=== PATIENT | male | born 1960 | race Caucasian/White ===

== ENCOUNTER 2020-05-01 09:50 | Outpatient (CLI) | payer BC, SELFPAY ==
[2020-05-01 10:07] VITALS: BP 160/92; PULSE 78; RESP 20; TEMP 36.9; O2SAT 97; BMI 36.1
--- NOTE | 2020-05-01 10:33 | ECG_ITS ---
Measurements Intervals [place] Rate: 77 P: 50 CA: 201 QRS: -14 QRSD: 93 T: 50 QT: 355 QTc: 402 Interpretive Statements SINUS RHYTHM DELAYED PRECORDIAL R/S TRANSITION BASELINE ARTIFACT- I, II, AVR, AVL BORDERLINE ECG Electronically Signed On 05-01-2020 10:41:59 LITIGATION SPECIALIST by Milton George D.O.
[2020-05-01 10:55] LABS: Basophils Percent Auto 0.5 % (0.2-1.2); Eosinophils Absolute Auto 0.1 K/mm3 (0-0.3); Eosinophils Percent Auto 1.4 % (0-4.4); Hematocrit 50.1 % (42.0-52.0); Immature Granulocyte Absolute 0.02 K/mm3 (0.00-0.031); Immature Granulocyte Percent A 0.3 % (0-0.5); Lymphocytes Absolute Auto 1.28 K/mm3 (0.9-3.2); Mean Corpuscular HGB Conc 33.9 g/dl (32-36); Mean Corpuscular Hemoglobin 29.2 pg (26-34); Mean Corpuscular Volume 85.9 fl (80-100); Mean Platelet Volume 9.1 fl (7.4-10.4); Monocytes Absolute Auto 0.5 K/mm3 (0.1-0.6); Neutrophils Absolute Auto 4.5 K/mm3 (1.3-6.7); Neutrophils Percent Auto 70.8 % (45.5-73.1); Platelet Count Result 194 k/mm3 (150-375); Red Blood Count 5.83 M/mm3 (4.6-6.20); Red Cell Distribution Width 12.8 % (11.5-14.5); White Blood Count 6.4 K/mm3 (4.5-10.0)
[2020-05-01 11:04] LABS: INR 0.9; Prothrombin Time 12.9 Seconds (11.1-14.7)
[2020-05-01 11:05] LABS: Partial Thromboplastin Time 26.3 SECONDS (22.3-36.8)
[2020-05-01 11:06] LABS: Alanine Aminotransferase 32 U/L (4-50); Albumin Level 4.3 g/dL (3.5-5.1); Alkaline Phosphatase 61 U/L (38-126); Anion Gap 3 mmol/L (8-16); Aspartate Amino Transferase 25 U/L (17-59); Bilirubin,Total 0.7 mg/dL (0.2-1.3); Blood Urea Nitrogen 16 mg/dL (9-20); Calcium 9.8 mg/dL (8.4-10.2); Carbon Dioxide 31 mmol/L (22-30); Chloride 105 mmol/L (98-107); Estimated CRCL calculation 107 ml/min; Estimated Glomerular Filt Rate > 60; Glucose 174 mg/dL (75-110); Potassium 4.5 mmol/L (3.4-5.0); Sodium 139 mmol/L (137-145)
== END 2020-05-01 09:51 | disposition home or self-care (01) ==
LOC: ANHSURGERY 09:53
PROVIDERS: PCP Family Medicine; Visit Provider Urology
DX: C61 Malignant neoplasm of prostate (principal); I10 Essential (primary) hypertension; Z01.818 Encounter for other preprocedural examination; R94.31 Abnormal electrocardiogram [ECG] [EKG]
CPT/HCPCS: 36415; 80053; 85025; 85610; 85730; 86850; 86900; 86901; 87086; 93005

== ENCOUNTER 2020-05-06 00:09 | Outpatient (CLI) | payer BC, SELFPAY ==
[2020-05-07 00:20] LABS: SARS-CoV-2 RNA PCR Negative
== END 2020-05-06 00:10 | disposition home or self-care (01) ==
LOC: ANHCOVIDDT 00:10
PROVIDERS: PCP Family Medicine; Visit Provider Urology
DX: Z01.812 Encounter for preprocedural laboratory examination (principal); Z20.822 Contact with and (suspected) exposure to COVID-19
CPT/HCPCS: C9803; U0003; U0005

== ENCOUNTER 2020-05-09 00:58 | Day surgery (SDC) | payer BC, SELFPAY ==
[2020-05-01 10:07] VITALS: BP 160/90; PULSE 78; RESP 20; TEMP 36.9; O2SAT 97
[2020-05-09] VITALS (15 sets, daily range): BP systolic 99–150; BP diastolic 57–91; PULSE 82–101; RESP 12–20; TEMP 36.1–37.3; O2SAT 92–100
--- NOTE | 2020-05-09 07:09 | PM.IMHP ---
H&P: HPI History of Present Illness Date/Time: 05/09/20 07:09 Chief Complaint: Adenocarcinoma of prostate Narrative: Rufino Farnsworth is a 59 year old male found to have adenocarcinoma of prostate. He has opted for robotic assist nerve sparing prostatectomy with possible PLND. Risks and complications were discussed in office. Review of Systems Review of Systems: All systems reviewed & are unremarkable except as noted in HPI and below PMFSH Past Medical History Medical History Diabetes Hyperlipidemia Hypertension Prostate cancer Family History Family History Mother Family history of thyroid disease Family history of dementia Father Patient's father is Family history of malignant neoplasm Other Hypertension Social History Social History Smoking status: Never smoker Second hand tobacco smoke exposure: No Alcohol intake: never Substance use: never Substance use type: does not use Living arrangements: with family Spiritual care concerns: No Meds Home Medications and Allergies Home Medications Medication Instructions Recorded Confirmed Type amlodipine 10 mg DAILY 04/27/19 05/02/20 History aspirin 81 mg DAILY 04/27/19 05/02/20 History atenolol 25 mg DAILY 04/27/19 05/02/20 History empagliflozin-metformin [Synjardy] 1 tablet BID 04/27/19 05/02/20 History glimepiride 4 mg PO DAILY 04/27/19 05/02/20 History irbesartan 300 mg DAILY 04/27/19 05/02/20 History rosuvastatin 10 mg PO DAILY 04/27/19 05/02/20 History sitagliptin [Januvia] 100 mg PO DAILY 04/27/19 05/02/20 History cvmuuhyx-tqq-gthwx-vit K-lycop 1 tablet PO DAILY 05/01/20 05/02/20 History [Men 50 Plus Advanced One Daily] omega 0-ocm-jen-fish oil [Fish Oil] 1 cap QAM 05/01/20 05/02/20 History Allergies Allergy/AdvReac Type Severity Reaction Status Date / Time No Known Allergies Allergy Unverified 05/02/20 11:29 Exam Const: General: cooperative, healthy appearing, comfortable and no acute distress HENMT: Head: normal to inspection Eyes: General: appearance normal, both eyes and all related structures Chest: Chest palpation & inspection: normal inspection of the chest Resp: Effort & Inspection: normal respiratory effort Cardio: Rate: regular rate GI: Inspection: normal to inspection Back/Spine/Pelvis: Back: no CVA tenderness Skin: General skin exam: normal color Neuro: General: patient oriented x3 Psych: Appearance: grossly normal Assessment and Plan Assessment and plan (1) Prostate cancer: Code(s): C61 - Malignant neoplasm of prostate Status: Acute Assessment and Plan: Robotic assist nerve sparing prostatectomy with possible PLND
--- NOTE | 2020-05-09 07:11 | WPDANESEPPF ---
Anes - Initial Pre Proc Eval Procedure: Operation Date: 05/09/20 07:30 Proposed Procedures p Robotic Assisted Nerve Sparing Prostatectomy, Possible Pelvic Lymph Node Dissection - Jhony King MD Date/Time: 05/09/20 07:11 Surgeon: Jhony King MD Pre Op Diagnosis: Prostate Ca Patient Data Age: 59 Gender: M Height: 6 ft 2 in Weight: 127.6 kg Last Vital Signs Temp 98.5 F 05/01/20 10:07 Pulse 78 05/01/20 10:07 Resp 20 05/01/20 10:07 BP 160/90 H 05/01/20 10:07 Pulse Ox 97 05/01/20 10:07 Allergies Allergy/AdvReac Type Severity Reaction Status Date / Time No Known Allergies Allergy Unverified 05/02/20 11:29 Home Medications Medication Instructions Recorded Confirmed Type amlodipine 10 mg DAILY 04/27/19 05/02/20 History aspirin 81 mg DAILY 04/27/19 05/02/20 History atenolol 25 mg DAILY 04/27/19 05/02/20 History empagliflozin-metformin [Synjardy] 1 tablet BID 04/27/19 05/02/20 History glimepiride 4 mg PO DAILY 04/27/19 05/02/20 History irbesartan 300 mg DAILY 04/27/19 05/02/20 History rosuvastatin 10 mg PO DAILY 04/27/19 05/02/20 History sitagliptin [Januvia] 100 mg PO DAILY 04/27/19 05/02/20 History orfaeljt-sgd-waeyl-vit K-lycop 1 tablet PO DAILY 05/01/20 05/02/20 History [Men 50 Plus Advanced One Daily] omega 1-zmd-adp-fish oil [Fish Oil] 1 cap QAM 05/01/20 05/02/20 History Patient hx anesthesia problems: none Family hx anesthesia problems: none PMFSH Past Medical History Medical History Diabetes Hyperlipidemia Hypertension Prostate cancer Family History Family History Mother Family history of thyroid disease Family history of dementia Father Patient's father is Family history of malignant neoplasm Other Hypertension Social History Social History Smoking status: Never smoker Second hand tobacco smoke exposure: No Alcohol intake: never Substance use: never Substance use type: does not use Living arrangements: with family Spiritual care concerns: No Anes - Eval Final PreProcedure Day of Procedure 05/09/20 07:11 Patient weight: obese Heart: regular rate and rhythm Lungs: clear to auscultation Airway: Mallampati scale class II Neurological: alert and oriented Last oral intake: >/= 8 hours ASA classification: III Emergent: no Anesthetic plan: proceed Anesthesia type and monitoring: general ETT and standard monitoring Informed Consent: The patient's anesthetic plan and its attendant risks and benefits were discussed with the patient/family/POA. Questions were solicited and answers provided to the satisfaction of the patient/family/POA.
[2020-05-09] MEDS: LACTATED RINGERS 1,000 ML 30 ML IV CONT ×2 (07:12→13:02)
--- NOTE | 2020-05-09 07:13 | WPDHPUPDATE1 ---
History and Physical Update Update Date/Time: 05/09/20 07:13 History and Physical has been reviewed, including an updated exam of the patient. There are NO changes in the patient's condition. Risks, benefits, and alternatives have been discussed and questions answered. Patient agrees to proceed with procedure.
[2020-05-09 07:14] LABS: Glucose Point of Care 167 (65-105)
[2020-05-09] MEDS: ceFAZolin 3 GM/D5W 100 ML 100 ML IVPB (07:26)
[2020-05-09] MEDS: BUPIVACAINE HCL 0.5% PF 30 ML VIAL INFILTRATE (09:03)
--- NOTE | 2020-05-09 12:46 | PM.PROC ---
Procedure Note - Detailed Date of procedure: 05/09/20 Pre-op diagnosis: Prostate Ca Post-op diagnosis: same Procedure performed: Robotic assisted nerve-sparing prostatectomy Description of procedure: The patient is taken the operative suite and correctly identified. Once anesthesia was obtained he was placed in dorsal lithotomy position and prepped and draped usual sterile fashion. This supraumbilical incision was made carried down to the rectus fascia. We did an open technique and placed a camera trocar in direct vision. The abdomen was insufflated to 15 mm Hg pressure. We then went ahead and placed our remaining working ports. The robot was docked after the patient was placed in steep Trendelenburg. A Trimble catheter had been inserted earlier with 20 cc in the balloon. Posterior approach was then performed. Seminal vesicles were dissected out and the vas were transected. Bladder was then taken down in a standard fashion. The space of Retzius was developed. The [place] status were transected. The dorsal venous complex was isolated using 0 Vicryl secured to the pubic bone. Anterior bladder neck was then opened. Posterior bladder neck was also transected. We did a bladder neck sparing procedure. CC prior to not be Zaiz that had been incised was then exposed seminal vesicles and vas were isolated. Bilateral nerve-sparing was performed the standard fashion. Pedicles were clipped. Dorsal venous complex was then transected. Urethra was also transected. Specimen was placed in Endo-Catch bag. We then proceeded with anastomosis of the bladder neck to the urethra using V lock suture in a running fashion. There was good mucosa to mucosa approximation. Trimble catheter was inserted inflated with 10 cc sterile water. We filled the bladder with 160 cc of normal saline. There was no evidence of extravasation at this time. Surgicel had been placed along the neurovascular bundle. The robot was undocked. All left flap counts sponge counts and needle counts were correct. Endo-Catch bag was then brought out through the midline incision. Rectus fascia was closed using 0 Vicryl in a running fashion. Subcuticular stitches were then placed as was lidocaine in the skin. Patient tolerated procedure well without any complications is taken recovery room stable condition. Anesthesia: GETA Surgeon: Jhony King MD Estimated blood loss (mL): 500 Drains: Yes Packing: No Pathology: yes Complications: No immediate complications Condition: stable Disposition: PACU
[2020-05-09 13:27] LABS: Glucose Point of Care 200 (65-105)
[2020-05-09] MEDS: fentaNYL CITRATE INJ (*CRX) 100 MCG/2 ML VIAL 25 MCG IV PUSH ×4 (13:40→14:05)
--- NOTE | 2020-05-09 14:44 | ADMGEN ---
This patient, Rufino Farnsworth, was admitted to Medical Room 250-. Patient/family oriented to hospital policies and general routines including ID bracelet, bed and alarms, visiting hours, pain management, procedures, bathroom and other care routines, personal items, smoking policy, room service/diet, and visiting hours. Information on how to activate the Rapid Response Team has been discussed. Patient/Family are encouraged to report perceived risks to care and to ask questions if they do not understand what they are told or what they should do.
[2020-05-09] MEDS: LACTATED RINGERS 1,000 ML 125 ML IV CONT (14:58)
--- NOTE | 2020-05-09 15:25 | PHAR ---
HOME MED VERIFIED SYNJARDY EMPAGLIFLOZIN/METFORMIN 12.5/1000MG 1 TABLET BID WITH MEALS
[2020-05-09 17:00] LABS: Glucose Point of Care 259 (65-105)
[2020-05-09] MEDS: HYDROcodone/acetaminophen (*CRX) 5-325 MG TABLET 1 TAB PO (17:01)
[2020-05-09] MEDS: INSULIN ASPART (*BKC) 100 UNITS/ML SUB-Q (17:05)
[2020-05-09 20:55] LABS: Glucose Point of Care 192 (65-105)
[2020-05-10] MEDS: LACTATED RINGERS 1,000 ML 125 ML IV CONT (00:05)
[2020-05-10] MEDS: HYDROcodone/acetaminophen (*CRX) 5-325 MG TABLET 2 TAB PO ×3 (00:05→13:13)
[2020-05-10 02:00] VITALS: BP 120/84; PULSE 105; RESP 16; TEMP 37.2; O2SAT 95
[2020-05-10 05:28] VITALS: BP 163/88; PULSE 93; RESP 16; TEMP 37.1; O2SAT 95
[2020-05-10 05:45] LABS: Hematocrit 39.4 % (42.0-52.0); Hemoglobin 13.3 g/dL (14.0-18.0)
[2020-05-10 05:59] LABS: Anion Gap 6 mmol/L (8-16); Blood Urea Nitrogen 17 mg/dL (9-20); Calcium 8.3 mg/dL (8.4-10.2); Carbon Dioxide 26 mmol/L (22-30); Chloride 103 mmol/L (98-107); Estimated CRCL calculation 106 ml/min; Estimated Glomerular Filt Rate > 60; Glucose 171 mg/dL (75-110); Potassium 3.7 mmol/L (3.4-5.0); Sodium 135 mmol/L (137-145)
--- NOTE | 2020-05-10 07:21 | WPDANESPN ---
Anes - Prog Note Post-Op Date/Time: 05/10/20 07:21 Cardiovascular status: normal Respiratory status: normal Airway patency: baseline Mental status: baseline Post-Op hydration status: normal Vital Signs: Last Vital Signs Temp 98.7 F 05/10/20 05:28 Pulse 93 05/10/20 05:28 Resp 16 05/10/20 05:28 BP 163/88 H 05/10/20 05:28 Pulse Ox 95 05/10/20 05:28 Pain Score (VAS): 04/23 I/O: Intake & Output 05/09/20 05/09/20 05/10/20 15:59 23:59 07:59 Intake Total 200 3980 550 Output Total 205 855 880 Balance -5 3125 -330 Laboratory Tests 05/10/20 05:04 05/09/20 05/09/20 05/09/20 13:10 16:55 20:52 Hgb Hct Sodium Potassium Chloride Carbon Dioxide Anion Gap BUN Creatinine Estim Creat Clear Calc Estimated GFR Glucose POC Capillary Glucose 200 H 259 H 192 H Calcium 05/10/20 05/10/20 05:04 05:04 Hgb Pending Hct Pending Sodium 135 L Potassium 3.7 Chloride 103 Carbon Dioxide 26 Anion Gap 6 L BUN 17 Creatinine 0.90 Estim Creat Clear Calc 106 Estimated GFR > 60 Glucose 171 H POC Capillary Glucose Calcium 8.3 L Post-procedural complaints: none Patient Feedback: Patient satisfied with anesthetic care.
--- NOTE | 2020-05-10 07:57 | WPDUROPN2 ---
Progress Note: A&P Assessment and Plan (1) Adenocarcinoma of prostate: Code(s): C61 - Malignant neoplasm of prostate Status: Acute Additional Plan POD #1 robotic assist nerve sparing prostatectomy Doing well Ambulate Await H/H Most likely discharge home after lunch with stone. Will see what VIDYA output is. Subjective Subjective Date/Time Seen: 05/10/20 07:57 Feels great this morning. Ambulated last night Review of Systems Review of Systems: All systems reviewed & are unremarkable except as noted in HPI and below Exam Const: General: cooperative, comfortable and no acute distress Chest: Chest palpation & inspection: normal inspection of the chest Cardio: Rate: regular rate GI: GI Palp: Yes Soft to palpation and No Tenderness to palpation present (GI) Urinary Catheter: Urinary Catheter: patent and draining and urine clear Objective Data Vital Signs Vital Signs: Vital Signs - 24 hr 05/09/20 13:10 05/09/20 13:25 05/09/20 13:40 Temperature 36.2 C L Pulse Rate 86 84 82 Respiratory Rate 14 16 14 Blood Pressure 116/79 108/71 105/73 Pulse Oximetry 98 100 100 05/09/20 13:55 05/09/20 14:10 05/09/20 14:25 Temperature 36.2 C L Pulse Rate 89 88 87 Respiratory Rate 12 12 14 Blood Pressure 107/69 103/75 99/71 L Pulse Oximetry 92 94 94 05/09/20 15:00 05/09/20 15:15 05/09/20 15:45 Temperature 36.4 C 36.2 C L 36.1 C L Pulse Rate 94 91 87 Respiratory Rate 16 16 16 Blood Pressure 119/80 127/82 135/87 Pulse Oximetry 93 99 96 05/09/20 16:45 05/09/20 17:03 05/09/20 18:00 Temperature 36.2 C L 36.9 C Pulse Rate 95 90 97 Respiratory Rate 20 18 Blood Pressure 101/77 127/69 115/57 L Pulse Oximetry 96 95 05/09/20 20:00 05/09/20 21:30 05/10/20 02:00 Temperature 37.3 C 37.2 C Pulse Rate 101 H 101 H 105 H Respiratory Rate 14 14 16 Blood Pressure 124/67 120/84 Pulse Oximetry 93 93 95 05/10/20 05:28 Temperature 37.1 C Pulse Rate 93 Respiratory Rate 16 Blood Pressure 163/88 H Pulse Oximetry 95 Intake/Output Intake/Output: Intake & Output 05/07/20 05/08/20 05/09/20 05/10/20 23:59 23:59 23:59 23:59 Intake Total 4280 550 Output Total 1060 880 Balance 3220 -330 Meds/Results Medications: Active Medications Generic Name Dose Route Start Last Admin Trade Name Freq PRN Reason Stop Dose Admin Hydrocodone Bitart/Acetaminophen 1 tab 05/09/20 14:30 05/09/20 17:01 Hydrocodone/Acetaminophen (*Crx) 5-325 Mg Tablet PO 1 tab Q6H PRN Administration Pain Rated 1-3 Hydrocodone Bitart/Acetaminophen 2 tab 05/09/20 14:30 05/10/20 06:56 Hydrocodone/Acetaminophen (*Crx) 5-325 Mg Tablet PO 2 tab Q6H PRN Administration Pain Rated 4-6 Amlodipine Besylate 10 mg 05/10/20 09:00 Amlodipine Besylate 5 Mg Tablet PO DAILY JUICE Atenolol 25 mg 05/10/20 09:00 Atenolol 25 Mg Tablet PO DAILY JUICE Dextrose 12.5 gm 05/09/20 15:16 Dextrose 50% 25 Gm/50 Ml Syringe IV PUSH PRN PRN Hypoglycemia Protocol Glimepiride 4 mg 05/10/20 09:00 Glimepiride 2 Mg Tablet PO 06/09/20 09:01 DAILY JUICE Glucagon 1 mg 05/09/20 15:16 Glucagon For Inj 1 Mg Vial IM PRN PRN Hypoglycemia Protocol Glucose 15 gm 05/09/20 15:16 Glucose Oral Gel 15 Gm Of Glucse In 37.5 Gm Tube PO PRN PRN Hypoglycemia Protocol Hyoscyamine 0.125 mg 05/09/20 14:30 Hyoscyamine Sulfate 0.125 Mg Tablet SUBLINGUAL Q4H PRN Bladder Spasm Lactated Ringer's 1,000 mls @ 125 mls/hr 05/09/20 14:30 05/10/20 00:05 Lr - Lactated Ringers Iv IV CONT 125 mls/hr .Q8H JUICE Administration Dextrose 1,000 mls @ 100 mls/hr 05/09/20 15:16 Dextrose 5% 1,000 Ml IVPB PRN PRN Hypoglycemia Protocol Insulin Aspart 2 - 5 units 05/09/20 17:00 05/09/20 17:05 Insulin Aspart (*Bkc) 100 Units/Ml SUB-Q 3 units TIDWM JUICE Administration Protocol Irbesartan 300 mg
[2020-05-10] MEDS: IRBESARTAN 150 MG TABLET 300 MG PO (08:04)
[2020-05-10 08:05] VITALS: PULSE 78
[2020-05-10] MEDS: ROSUVASTATIN 10 MG TABLET PO (08:05)
[2020-05-10] MEDS: GLIMEPIRIDE 2 MG TABLET 4 MG PO (08:05)
[2020-05-10] MEDS: amLODIPine BESYLATE 5 MG TABLET 10 MG PO (08:05)
[2020-05-10] MEDS: atenoloL 25 MG TABLET PO (08:05)
[2020-05-10 08:30] VITALS: BP 166/92; PULSE 104; RESP 20; TEMP 36.4; O2SAT 98
[2020-05-10 11:04] LABS: Glucose Point of Care 221 (65-105)
[2020-05-10] MEDS: INSULIN ASPART (*BKC) 100 UNITS/ML SUB-Q (11:51)
[2020-05-10 12:15] VITALS: BP 140/78; PULSE 102; RESP 18; TEMP 36.1; O2SAT 99
--- NOTE | 2020-05-10 13:37 | PM.DS ---
DS: Admitting Diagnosis Admitting Diagnosis Admitting Diagnosis: Prostate Cancer DS: Discharge Diagnosis Discharge Diagnosis (1) Prostate cancer: Code(s): C61 - Malignant neoplasm of prostate Status: Acute DS: Summary Hospital Course Hospital Course: Patient is s/p Robotic Prostatectomy. DS: Data Data Completed and Pending Pending studies at discharge: Pending at discharge 05/09/20 11:47 Surgical [PTH] Routine Labs on day of discharge: Labs from last 24 hours 05/10/20 05/10/20 05/10/20 11:02 05:04 05:04 Hgb 13.3 L D Hct 39.4 L Sodium 135 L Potassium 3.7 Chloride 103 Carbon Dioxide 26 Anion Gap 6 L BUN 17 Creatinine 0.90 Estim Creat Clear Calc 106 Estimated GFR > 60 Glucose 171 H POC Capillary Glucose 221 H Calcium 8.3 L 05/09/20 05/09/20 20:52 16:55 Hgb Hct Sodium Potassium Chloride Carbon Dioxide Anion Gap BUN Creatinine Estim Creat Clear Calc Estimated GFR Glucose POC Capillary Glucose 192 H 259 H Calcium Discharge Plan Discharge Patient Disposition: Home, Self-Care Discharge Instructions: Follow up in the office on May 12 at 10:30 am with Claudia Villagran NP to remove VIDYA drain. You will then follow up on FridayMay 17 at 2pm following cystogram with Dr. King to have stone removed and to discuss pathology results and any further treatment plan if necessary. Please call the office or go to the ER for a fever of >102, drainage from your incision sites, edema, sudden acute abdominal pain, bloody urine or clots in the urine. Patient Instructions: Pain Management (DC), Stone Catheter Placement and Care (DC), Bora-Card Drain Care (GEN), Fall Prevention (DC), Urinary Leg Bag (GEN), How to Change a Catheter Drainage Bag (DC) Stand Alone Forms: Avoid NSAIDs, Fiber Supplement, High Fiber Diet Follow-up/Referrals: Jhony King MD [Physician] - Discharge Medications: New hyoscyamine sulfate [Anaspaz] 0.125 mg Tablet,Disintegrating 0.125 mg sublingual Q4H PRN (Reason: Bladder Spasm) 5 Days Qty: 30 RF: 0 levofloxacin 500 mg Tablet 500 mg PO DAILY 4 Days Qty: 4 RF: 0 hydrocodone-acetaminophen 5-325 mg tablet 1 tablet PO Q6H PRN (Reason: pain) Qty: 20 RF: 0 Continued atenolol 25 mg tablet 25 mg DAILY RF: 0 irbesartan 300 mg tablet 300 mg DAILY RF: 0 amlodipine 10 mg Tablet 10 mg DAILY RF: 0 glimepiride 4 mg Tablet 4 mg PO DAILY RF: 0 rosuvastatin 10 mg Tablet 10 mg PO DAILY RF: 0 Januvia 100 mg Tablet 100 mg PO DAILY RF: 0 Synjardy 12.5-1,000 mg Tablet 1 tablet BID RF: 0 Held aspirin 81 mg tablet,delayed release (DR/EC) 81 mg DAILY RF: 0 Hold Instructions: Resume on 05/17/20. omega 5-bjb-fjs-fish oil [Fish Oil] 1,200 (144-216) mg Capsule 1 cap QAM RF: 0 Hold Instructions: Resume on 05/17/20. Men 50 Plus Advanced One Daily 400-20-370 mcg Tablet 1 tablet PO DAILY RF: 0 Hold Instructions: Resume on 05/17/20.
--- NOTE | 2020-05-10 13:38 | PM.DS ---
DS: Admitting Diagnosis Admitting Diagnosis Admitting Diagnosis: Prostate Cancer DS: Summary Hospital Course Hospital Course: See note below Time Spent with Patient Time attestation: Pre Op Diagnosis: Prostate Cancer Post Operative Diagnosis: Prostate Cancer Patient underwent a Robotic assisted nerve-sparing prostatectomy with Dr. Sabina King on 05/09/2020. He tolerated the procedure well and went to recovery in stable condition and to the floor for further observation overnight. He continues to improve, is ambulatory, in little pain, tolerating diet and wants to go home. He will be discharged home with a VIDYA drain and Stone to be removed later this week (drain) and next (stone). He will resume all home medications except ASA and vitamins which will be held until stone is removed on 05/17/2020. He will also go home with Hydrocodone for pain, Levaquin to prevent SSI, and Levsin for bladder spasms. He will resume a diabetic diet, activity as tolerated, no straining or heavy lifting and no driving on pain medications. Exam Resp: Effort & Inspection: normal respiratory effort Cardio: Rate: tachycardic GI: GI Palp: Yes Soft to palpation and No Tenderness to palpation present (GI) (Incisions are well approximated, no drainage, redness or edema) Rectal Exam: other Other: VIDYA drain has >75cc of bloody drainage. : General: Yes no CVA tenderness Urinary Catheter: Urinary Catheter: patent and draining and urine clear Extrem: General: no edema DS: Data Data Completed and Pending Pending studies at discharge: Pending at discharge 05/09/20 11:47 Surgical [PTH] Routine Labs on day of discharge: Labs from last 24 hours 05/10/20 05/10/20 05/10/20 11:02 05:04 05:04 Hgb 13.3 L D Hct 39.4 L Sodium 135 L Potassium 3.7 Chloride 103 Carbon Dioxide 26 Anion Gap 6 L BUN 17 Creatinine 0.90 Estim Creat Clear Calc 106 Estimated GFR > 60 Glucose 171 H POC Capillary Glucose 221 H Calcium 8.3 L 05/09/20 05/09/20 20:52 16:55 Hgb Hct Sodium Potassium Chloride Carbon Dioxide Anion Gap BUN Creatinine Estim Creat Clear Calc Estimated GFR Glucose POC Capillary Glucose 192 H 259 H Calcium Discharge Plan Discharge Patient Disposition: Home, Self-Care Discharge Instructions: Follow up in the office on May 12 at 10:30 am with Claudia Villagran BROMINATION EQUIPMENT OPERATOR to remove VIDYA drain. You will then follow up on FridayMay 17 at 2pm following cystogram with Dr. King to have stone removed and to discuss pathology results and any further treatment plan if necessary. Please call the office or go to the ER for a fever of >102, drainage from your incision sites, edema, sudden acute abdominal pain, bloody urine or clots in the urine. Patient Instructions: Pain Management (DC), Stone Catheter Placement and Care (DC), Bora-Card Drain Care (GEN), Fall Prevention (DC), Urinary Leg Bag (GEN), How to Change a Catheter Drainage Bag (DC) Stand Alone Forms: Avoid NSAIDs, Fiber Supplement, High Fiber Diet Follow-up/Referrals: Jhony King MD [Physician] - Discharge Medications: New hyoscyamine sulfate [Anaspaz] 0.125 mg Tablet,Disintegrating 0.125 mg sublingual Q4H PRN (Reason: Bladder Spasm) 5 Days Qty: 30 RF: 0 levofloxacin 500 mg Tablet 500 mg PO DAILY 4 Days Qty: 4 RF: 0 hydrocodone-acetaminophen 5-325 mg tablet 1 tablet PO Q6H PRN (Reason: pain) Qty: 20 RF: 0 Continued atenolol 25 mg tablet 25 mg DAILY RF: 0 irbesartan 300 mg tablet 300 mg DAILY RF: 0 amlodipine 10 mg Tablet 10 mg DAILY RF: 0 glimepiride 4 mg Tablet 4 mg PO DAILY RF: 0 rosuvastatin 10 mg Tablet 10 mg PO DAILY RF: 0 Januvia 100 mg Tablet 100 mg PO DAILY RF: 0 Synjardy 12.5-1,000 mg Tablet 1 tablet BID RF: 0 Held aspirin 81 mg tablet,delayed release (DR/EC) 81 mg DAILY RF: 0
== END 2020-05-10 14:20 | disposition home or self-care (01) ==
LOC: ANHSURGERY 06:07 → ANH2MED 14:40
PROVIDERS: PCP Family Medicine; Visit Provider Urology
PROC: 0VT04ZZ Resection of Prostate, Percutaneous Endoscopic Approach (ICD-10-PCS; CPT 55867; principal; 2020-05-09 07:30)
DX: C61 Malignant neoplasm of prostate (principal); I10 Essential (primary) hypertension; E78.5 Hyperlipidemia, unspecified; E11.9 Type 2 diabetes mellitus without complications; E66.9 Obesity, unspecified; Z68.35 Body mass index [BMI] 35.0-35.9, adult; Z79.82 Long term (current) use of aspirin; Z79.84 Long term (current) use of oral hypoglycemic drugs
CPT/HCPCS: 55866; S2900; 36415; 80048; 85014; 85018; 88305; 88307; 88309; A9270; J0690; J1100; J1170; J1815; J2250; J2370; J2405; J2704; J2710; J3010; J7030; J7120; Q9968

== ENCOUNTER 2020-05-17 12:29 | Outpatient (CLI) | payer BC, SELFPAY ==
--- NOTE | ~2020-05-17 | XR_ITS ---
EXAMINATION: XR cystogram DATE: 05/17/2020 13:08 INDICATION: Prostate cancer status post prostatectomy. TECHNIQUE: Water-soluble contrast was gravity-infused through the patient's Trimble catheter. Multiple fluoroscopic images were obtained. Fluoroscopy exposure time was 0.3 minutes. The total number of luz maria ges was 8. COMPARISON: None. FINDINGS: There is no extraluminal leakage of contrast from the bladder or urethra. No ureteral reflu x. IMPRESSION: 1. Normal cystogram. Reviewed, dictated and finalized at location A. IMPRESSION: 1. Normal cystogram.
== END 2020-05-17 12:30 | disposition home or self-care (01) ==
PROVIDERS: PCP Family Medicine; Visit Provider Urology
DX: C61 Malignant neoplasm of prostate (principal)
CPT/HCPCS: 51600; 74430; Q9967

== ENCOUNTER → 2022-01-09 07:51 | Outpatient (CLI) | payer BC, SELFPAY ==
--- NOTE | ~2022-01-09 | US_ITS ---
US right upper quadrant INDICATION: Abdomen pain. PROCEDURE: Realtime right upper abdominal ultrasound. COMPARISON: No prior studies for comparison. FINDINGS: The pancreas is normal without focal mass or pancreatic ductal dilation. Liver echotexture is increased, consistent with fatty infiltration. There is normal directional flow in the portal ve in. The gallbladder is normal without stones, gallbladder wall thickening or pericholecystic fluid. Comm on bile duct measures 5 mm. No sonographic Ashton's sign. IMPRESSION: 1: Hepatic steatosis. Reviewed, dictated and finalized at location B. IMPRESSION: 1: Hepatic steatosis.
== END ==
PROVIDERS: PCP Physician Assistant; Visit Provider Physician Assistant
DX: R10.84 Generalized abdominal pain (principal); K76.0 Fatty (change of) liver, not elsewhere classified
CPT/HCPCS: 76705

== ENCOUNTER 2022-05-23 10:29 | Outpatient (CLI) | payer BC, SELFPAY ==
--- NOTE | ~2022-05-23 | MR_ITS ---
EXAMINATION: MR pelvis wo/w con INDICATION: Malignant neoplasm of the prostate TECHNIQUE: 3D Axial T2 Cube, Axial 2D FIESTA, Coronal SSFSE ARC, Axial and Coronal 2D FIESTA FatSat, Axial T2 FS, Axial SSFSE BH ARC, Axial 3D DualEcho BH, Axial SSFSE-IR Matt, Axial DWI b=600, pre and d ynamic postcontrast Axial LAVA ARC, WATER:POST Cor LAVA-FLEX COMPARISON: None available CONTRAST: Multihance, 20 cc FINDINGS: There are changes of prostatectomy. There are no pathologically enlarged pelvic lymph nodes . No dilated loops of bowel are evident. Peripelvic cysts are noted in the kidneys. Hemangiomas are n oted at S1. No abnormal enhancement is present after contrast administration. IMPRESSION: 1. Changes of prostatectomy without evidence of metastatic disease. Reviewed, dictated and finalized at location L. 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
== END 2022-05-23 10:30 | disposition home or self-care (01) ==
PROVIDERS: PCP Family Medicine; Visit Provider Radiology Radiation Oncology
DX: C61 Malignant neoplasm of prostate (principal); Z51.0 Encounter for antineoplastic radiation therapy; Z90.79 Acquired absence of other genital organ(s)
CPT/HCPCS: 72197; A9577

== ENCOUNTER 2022-11-22 00:33 | Day surgery (SDC) | payer BC, SELFPAY ==
[2022-11-12 11:45] VITALS: BMI 35.9
[2022-11-22 06:40] VITALS: BP 143/90; PULSE 83; RESP 18; TEMP 36.4; O2SAT 97; BMI 35.6
[2022-11-22] MEDS: LACTATED RINGERS 1,000 ML 150 ML IV CONT (06:59)
[2022-11-22 07:01] LABS: Glucose Point of Care 174 mg/dl (65-105)
--- NOTE | 2022-11-22 07:24 | PM.HPGS ---
History of Present Illness History of Present Illness Consent: Risks, benefits, and alternatives have been discussed and questions answered. Patient agrees to proceed with procedure. Chief complaint: neoplasm screening Narrative: Rufino Farnsworth is a 62 year old male Presents for screening colonoscopy. Patient reports that his current weight appetite and bowel movements are normal. Patient denies abdominal pain. He has had no bleeding. Family history noncontributory. Previous colonoscopy 10 years ago was unremarkable. Patient reports over the last year to is been dealing with prostate cancer. He denies any specific bowel issues at present. Review of Systems Review of Systems: Review of systems noncontributory. [facility] Past Medical History Medical History Diabetes Hyperlipidemia Hypertension Obstructive sleep apnea Osteoarthritis Prostate cancer Surgical History Surgical History H/O removal of cyst ganglion cyst R wrist 2007 History of prostate surgery robotic assisted nerve-sparing prostatectomy 05/09/20 History of vasectomy 07/1984 Family History Family History Mother Family history of thyroid disease Family history of dementia Father Patient's father is Family history of malignant neoplasm Other Hypertension Social History Social History (Updated 09/03/22 @ 11:21 by Cristal Gonzalez MA) Smoking status: Never smoker Second hand tobacco smoke exposure: No Alcohol intake: never Substance use: never Substance use type: does not use Lack of Transportation: No Lack of Food: Never True Current Housing: I Have Housing Concerned About Future Housing: No Difficulty Paying Gas/Electric Bills: No Difficulty Paying for Meds: No Education: High School Diploma/GED Difficulty w/ Childcare or Family Care: No Living arrangements: with family Occupation/Education: retired Gender identity (if verbalized by the patient): Male Sexual Orientation (if Verbalized by the Patient): Straight or Heterosexual Spiritual care concerns: No Meds Home Medications and Allergies Home Medications Medication Instructions Recorded Confirmed Type amlodipine 10 mg tablet 10 mg DAILY 04/27/19 11/22/22 History aspirin 81 mg tablet,delayed 81 mg DAILY 04/27/19 11/22/22 History release atenolol 25 mg tablet 25 mg DAILY 04/27/19 11/22/22 History irbesartan 300 mg tablet 300 mg DAILY 04/27/19 11/22/22 History pqyntgepekua-vqy-nyeou acid-vit 1 tablet PO DAILY 05/01/20 11/22/22 History K-lycop 400 mcg-20 mcg-370 mcg tablet (Men 50 Plus Advanced One Daily) omega 8-qzi-smg-fish oil 60 mg-90 1 cap PO DAILY 05/08/22 11/22/22 History mg-500 mg capsule (Fish Oil) rosuvastatin 10 mg tablet 10 mg PO DAILY 05/08/22 11/22/22 History glimepiride 4 mg tablet 4 mg PO BID 05/11/22 11/22/22 History empagliflozin 25 mg tablet 25 mg PO DAILY 90 days #90 tabs 06/22/22 11/22/22 Rx (Jardiance) insulin degludec 100 unit/mL (3 15 unit (0.15 mL) subcut QHS #15 mL 06/22/22 11/22/22 Rx mL) subcutaneous pen (Tresiba FlexTouch U-100 insulin) blood sugar diagnostic (Contour #100 ea 09/03/22 11/22/22 Rx Test Strips) citalopram 10 mg tablet 10 mg PO DAILY #90 tabs 09/03/22 11/22/22 Rx dulaglutide 1.5 mg/0.5 mL 1.5 mg (0.5 mL) subcut WEEKLY #2 mL 09/03/22 11/22/22 Rx subcutaneous pen injector (Trulicity) metformin 1,000 mg tablet 2,000 mg PO DAILY #180 tabs 09/03/22 11/22/22 Rx blood sugar diagnostic (Contour #100 ea 09/11/22 11/22/22 Rx Next Test Strips) Allergies Allergy/AdvReac Type Severity Reaction Status Date / Time No Known Allergies Allergy Verified 11/22/22 06:44 Vital Signs Vital Signs - 24 hr 11/22/22 06:40 Temperature 97.6 F Pulse Rate 83 Respiratory Rate 18 Blood Pressure 143
--- NOTE | 2022-11-22 07:55 | WPDANESEPPF ---
Anes - Initial Pre Proc Eval Procedure: Operation Date: 11/22/22 08:00 Proposed Procedures p Screening Colonoscopy - Kirk Manning MD Date/Time: 11/22/22 07:55 Surgeon: Kirk Manning MD Pre Op Diagnosis: neoplasm screening Patient Data Age: 62 Gender: M Height: 1.88 m Weight: 125.8 kg Last Vital Signs Temp 97.6 F 11/22/22 06:40 Pulse 83 11/22/22 06:40 Resp 18 11/22/22 06:40 BP 143/90 H 11/22/22 06:40 Pulse Ox 97 11/22/22 06:40 O2 Del Method Room Air 11/22/22 06:40 Allergies Allergy/AdvReac Type Severity Reaction Status Date / Time No Known Allergies Allergy Verified 11/22/22 06:44 Home Medications Medication Instructions Recorded Confirmed Type amlodipine 10 mg tablet 10 mg DAILY 04/27/19 11/22/22 History aspirin 81 mg tablet,delayed 81 mg DAILY 04/27/19 11/22/22 History release atenolol 25 mg tablet 25 mg DAILY 04/27/19 11/22/22 History irbesartan 300 mg tablet 300 mg DAILY 04/27/19 11/22/22 History gtqojfuzsult-abc-mrpxw acid-vit 1 tablet PO DAILY 05/01/20 11/22/22 History K-lycop 400 mcg-20 mcg-370 mcg tablet (Men 50 Plus Advanced One Daily) omega 3-ltv-znn-fish oil 60 mg-90 1 cap PO DAILY 05/08/22 11/22/22 History mg-500 mg capsule (Fish Oil) rosuvastatin 10 mg tablet 10 mg PO DAILY 05/08/22 11/22/22 History glimepiride 4 mg tablet 4 mg PO BID 05/11/22 11/22/22 History empagliflozin 25 mg tablet 25 mg PO DAILY 90 days #90 tabs 06/22/22 11/22/22 Rx (Jardiance) insulin degludec 100 unit/mL (3 15 unit (0.15 mL) subcut QHS #15 mL 06/22/22 11/22/22 Rx mL) subcutaneous pen (Tresiba FlexTouch U-100 insulin) blood sugar diagnostic (Contour #100 ea 09/03/22 11/22/22 Rx Test Strips) citalopram 10 mg tablet 10 mg PO DAILY #90 tabs 09/03/22 11/22/22 Rx dulaglutide 1.5 mg/0.5 mL 1.5 mg (0.5 mL) subcut WEEKLY #2 mL 09/03/22 11/22/22 Rx subcutaneous pen injector (Trulicity) metformin 1,000 mg tablet 2,000 mg PO DAILY #180 tabs 09/03/22 11/22/22 Rx blood sugar diagnostic (Contour #100 ea 09/11/22 11/22/22 Rx Next Test Strips) Laboratory Tests 11/22/22 06:57 POC Capillary Glucose 174 H mg/dl (65-105) Patient hx anesthesia problems: none Family hx anesthesia problems: none Results Review: All pre-operative results and documents have been reviewed as part of the pre-operative evaluation. [facility] Past Medical History Medical History Diabetes Hyperlipidemia Hypertension Obstructive sleep apnea Osteoarthritis Prostate cancer Surgical History Surgical History H/O removal of cyst ganglion cyst R wrist 2007 History of prostate surgery robotic assisted nerve-sparing prostatectomy 05/09/20 History of vasectomy 07/1984 Family History Family History Mother Family history of thyroid disease Family history of dementia Father Patient's father is Family history of malignant neoplasm Other Hypertension Social History Social History (Updated 09/03/22 @ 11:21 by Cristal Gonzalez MA) Smoking status: Never smoker Second hand tobacco smoke exposure: No Alcohol intake: never Substance use: never Substance use type: does not use Lack of Transportation: No Lack of Food: Never True Current Housing: I Have Housing Concerned About Future Housing: No Difficulty Paying Gas/Electric Bills: No Difficulty Paying for Meds: No Education: High School Diploma/GED Difficulty w/ Childcare or Family Care: No Living arrangements: with family Occupation/Education: retired Gender identity (if verbalized by the patient): Male Sexual Orientation (if Verbalized by the Patient): Straight or Heterosexual Spiritual care concerns: No Anes - Eval Final PreProcedure Day of Procedure 11/22/22 07:55 Patient weight: normal Heart:
[2022-11-22 08:28] VITALS: BP 113/68; PULSE 76; RESP 18; O2SAT 95
[2022-11-22 08:38] VITALS: BP 121/80; PULSE 77; RESP 20; O2SAT 96
[2022-11-22 08:45] LABS: Glucose Point of Care 161 mg/dl (65-105)
[2022-11-22 08:48] VITALS: BP 123/81; PULSE 72; RESP 18; O2SAT 96
== END 2022-11-22 09:04 | disposition home or self-care (01) ==
PROVIDERS: PCP Family Medicine; Visit Provider Internal Medicine Gastroenterology
PROC: 0DJD8ZZ Inspection of Lower Intestinal Tract, Via Natural or Artificial Opening Endoscopic (ICD-10-PCS; CPT 45378; principal; 2022-11-22 08:00)
DX: Z12.11 Encounter for screening for malignant neoplasm of colon (principal); K64.8 Other hemorrhoids; D12.2 Benign neoplasm of ascending colon; D12.4 Benign neoplasm of descending colon; E11.9 Type 2 diabetes mellitus without complications; E78.5 Hyperlipidemia, unspecified; I10 Essential (primary) hypertension; G47.33 Obstructive sleep apnea (adult) (pediatric); Z85.46 Personal history of malignant neoplasm of prostate; Z79.82 Long term (current) use of aspirin; Z79.84 Long term (current) use of oral hypoglycemic drugs; Z79.4 Long term (current) use of insulin; Z79.899 Other long term (current) drug therapy
CPT/HCPCS: 45385; 82948; 88305; J2704; J7120

== ENCOUNTER → 2023-03-10 13:35 | Outpatient (CLI) | payer BC, SELFPAY ==
--- NOTE | ~2023-03-10 | CT_ITS ---
Non-contrast CT scan of the Abdomen and Pelvis Clinical indication: Left lower quadrant pain Technique: 2.5 mm axial scans were obtained through the abdomen and pelvis without intravenous or or al contrast. Dose reduction technique was used on this scan by utilizing automated exposure control a nd iterative reconstruction technique. The dose-length product (DLP) was 1169.55 mGy-cm. Findings: Images through the lung bases reveal no abnormalities. There is no evidence of renal or ureteral calculi. The kidneys and the ureters are nondilated. Bilate ral parapelvic renal cysts are present. The liver, spleen, pancreas, gallbladder, and adrenals appear normal. There are mild atherosclerotic calcifications of the aorta. There is no evidence of bowel obstruction. Images through the pelvis were performed. There is no evidence of ascites or lymphadenopathy. Urinary bladder unremarkable. No pelvic mass seen. Impression: No significant abnormality seen. Reviewed, dictated and finalized at [facility]. DOCUMENTATION Impression: No significant abnormality seen.
== END ==
PROVIDERS: PCP Physician Assistant; Visit Provider Surgery
DX: R10.32 Left lower quadrant pain (principal)
CPT/HCPCS: 74176

== ENCOUNTER 2023-03-16 13:24 | Emergency (ER) | payer BC, SELFPAY ==
--- NOTE | ~2023-03-16 | XR_ITS ---
EXAMINATION: XR chest 2V 03/16/2023 15:30 INDICATION: Productive cough. Nonsmoker. PROCEDURE: 2 view chest COMPARISON: Comparison to multiple prior studies sequentially, with oldest reviewed study dated 12/10. FINDINGS: The lungs are clear. The cardiomediastinal silhouette is within normal limits. There are no pleural effusions. There is no pneumothorax suspected. IMPRESSION: 1: NO ACUTE CARDIOPULMONARY DISEASE. Reviewed, dictated and finalized at location A. 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
[2023-03-16 13:37] VITALS: BP 150/94; PULSE 108; RESP 18; TEMP 37.1; O2SAT 97
--- NOTE | 2023-03-16 15:02 | ED.URI ---
HPI - URI/Sore Throat General Chief Complaint: Upper Respiratory Infection Stated Complaint: COVID + 03/11/2023, cough Time Seen by Provider: 03/16/23 15:02 Source: patient Mode of arrival: ambulatory Limitations: no limitations History of Present Illness HPI Narrative: 62-year-old male presents with complaint of continued cough since COVID diagnosis on March 11. Also complaints of left side pain, states he coughed and felt cold to left side of abdomen. Reports shortness of breath with exertion. No recent fever. symptoms started March 04. Called his primary care physician and was prescribed an antibiotic. Called back on March 11 when symptoms were not improving and was told to do a COVID test. At home COVID test was positive and was prescribed paxlovid. Patient reports no improvement to his symptoms with paxlovid. He reports congestion and wheezing to lungs, unable To sleep at night due to cough. All systems reviewed and negative except as noted above. Related Data Home Medications Medication Instructions Recorded Confirmed amlodipine 10 mg tablet 10 mg DAILY 04/27/19 03/16/23 aspirin 81 mg tablet,delayed 81 mg DAILY 04/27/19 03/16/23 release atenolol 25 mg tablet 25 mg DAILY 04/27/19 03/16/23 irbesartan 300 mg tablet 300 mg DAILY 04/27/19 03/16/23 ykmupwqcqnqr-ohe-yqngm acid-vit 1 tablet PO DAILY 05/01/20 03/16/23 K-lycop 400 mcg-20 mcg-370 mcg tablet (Men 50 Plus Advanced One Daily) omega 4-mmq-bdk-fish oil 60 mg-90 1 cap PO DAILY 05/08/22 03/16/23 mg-500 mg capsule (Fish Oil) rosuvastatin 10 mg tablet 10 mg PO DAILY 05/08/22 03/16/23 glimepiride 4 mg tablet 4 mg PO BID 05/11/22 03/16/23 Allergies Allergy/AdvReac Type Severity Reaction Status Date / Time No Known Allergies Allergy Verified 03/16/23 15:10 Review of Systems Review of Systems: CONSTITUTIONAL: Denies fever, chills, or sweats. EYES: Denies visual changes, redness, or discharge. ENT: Denies rhinorrhea, congestion, sore throat, or otalgia. CARDIOVASCULAR: Denies chest pain, palpitations, or edema. RESPIRATORY: Reports cough . Denies dyspnea. GASTROINTESTINAL: Denies abdominal pain, nausea, vomiting, or diarrhea. GENITOURINARY: Denies dysuria or hematuria. SKIN: Denies rash or itching. MUSCULOSKELETAL: Denies back pain, joint pain, or myalgia. reports left-sided abdomen/rib With coughing NEUROLOGIC: Denies headache, numbness, or weakness. PSYCHIATRIC: Denies anxiety or depression. All other systems reviewed are negative, except as documented in HPI. [facility] Past Medical History Medical History (Updated 03/16/23 @ 15:54 by Yasmine Rivers NP) Diabetes Hyperlipidemia Hypertension Obstructive sleep apnea Osteoarthritis Prostate cancer Surgical History Surgical History (Updated 03/03/23 @ 10:30 by Catie Evans) H/O removal of cyst ganglion cyst R wrist 2007 History of prostate surgery robotic assisted nerve-sparing prostatectomy 05/09/20 History of vasectomy 07/1984 Family History Family History Mother Family history of thyroid disease Family history of dementia Father Patient's father is Family history of malignant neoplasm Other Hypertension Social History Social History Smoking status: Never smoker Second hand tobacco smoke exposure: No Alcohol intake: never Substance use: never Substance use type: does not use Lack of Transportation: No Lack of Food: Never True Current Housing: I Have Housing Concerned About Future Housing: No Difficulty Paying Gas/Electric Bills: No Difficulty Paying for Meds: No Education: High School Diploma/GED Difficulty w/ Childcare or Family Care: No Living arrangements: with family Occupation/Education: retired Gender identity (if verbalized by the patient): Male Sexual Orientation (if Ve
== END 2023-03-16 16:05 | disposition home or self-care (01) ==
PROVIDERS: Emergency Provider Nurse Practitioner Family; PCP Physician Assistant
DX: U07.1 COVID-19 (principal); R05.9 Cough, unspecified; S29.012S Strain of muscle and tendon of back wall of thorax, sequela; X58.XXXS Exposure to other specified factors, sequela; E11.9 Type 2 diabetes mellitus without complications; E78.5 Hyperlipidemia, unspecified; I10 Essential (primary) hypertension; M19.90 Unspecified osteoarthritis, unspecified site; Z85.46 Personal history of malignant neoplasm of prostate; Z98.52 Vasectomy status; Z79.82 Long term (current) use of aspirin
CPT/HCPCS: 71046; 99213; G0463

== ENCOUNTER 2023-03-18 16:56 | Emergency (ER) | payer BC, SELFPAY ==
--- NOTE | ~2023-03-18 | CT_ITS ---
EXAMINATION: CTA chest PE abdomen pel DATE: 03/18/2023 18:16 INDICATION: EXAMINATION: CTA chest PE abdomen pel DATE: 03/18/2023 18:16 INDICATION: COVID, tachycardia, SOB, CP with coughing, abdominal pain and bruising following a forcef ul cough. TECHNIQUE: Computed tomography angiography (CTA) of the chest was performed with 100 mL Omnipaque 350 intravenous contrast timed to evaluate the pulmonary arteries, followed by portal venous phase imagi ng of the abdomen and pelvis. Coronal maximum intensity projection 3D-reconstructions were created by the technologist. The dose-length product (DLP) was 2444.63 mGy-cm. Automated exposure control and i terative reconstruction technique were employed. COMPARISON: X-ray chest 03/16/2023; CT abdomen pelvis 03/10/2023. FINDINGS: CHEST: Lung parenchyma and airways: Clear. Pleura: Unremarkable. Thoracic inlet, axillae and chest wall: Unremarkable. Thoracic aorta: Normal. Mediastinum: Normal. Heart and pericardium: Normal. Coronary artery calcifications: Moderate. Thoracic bones: No acute osseous finding. Pulmonary arteries: Study quality: Adequate. No pulmonary emboli detected. ABDOMEN/PELVIS: Liver: Normal. Biliary/Gallbladder: Gallbladder is normal. No bile duct dilation. Pancreas: No mass or duct dilation. Spleen: Normal. Adrenals:No mass. Kidneys: No suspicious mass, obstructing stone, or hydronephrosis. Bilateral cortical thinning. Simpl e right midpole cyst. Scattered hypodensities are too small to characterize but most likely represent cysts. Bilateral parapelvic cysts. GI tract: No small or large bowel dilation. Normal appendix. Mesentery/Peritoneum: No ascites, mass, or free air. Retroperitoneum: No mass. Atherosclerotic abdominal aortic and/or arterial calcifications. Pelvis: Pelvic organs are within normal limits. Soft Tissues: Subcutaneous stranding along the entire left lateral abdomen. Abdominopelvic bones: No acute osseous finding. Segmental fracture of the 10th costochondral cartila ge on the left. 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 IMPRESSION: No CT evidence of acute pulmonary embolus. Segmental fracture of the 10th costochondral cartilage. Extensive left abdominal subcutaneous hematom a. No other acute process identified in the chest, abdomen, or pelvis. Reviewed, dictated and finalized at location K. BUFFER IMPRESSION: No CT evidence of acute pulmonary embolus. Segmental fracture of the 10th costochondral cartilage. Extensive left abdomina l subcutaneous hematoma. No other acute process identified in the chest, abdomen, or pelvis.
[2023-03-18 17:13] VITALS: BP 157/99; PULSE 136; RESP 20; TEMP 36.6; O2SAT 96
--- NOTE | 2023-03-18 17:25 | ECG_ITS ---
Measurements Intervals [place] Rate: 132 P: 30 MS: 159 QRS: -24 QRSD: 82 T: 59 QT: 366 QTc: 544 Interpretive Statements SINUS TACHYCARDIA BORDERLINE LEFT AXIS DEVIATION [QRS AXIS < -20] ABNORMAL RHYTHM ECG COMPARED TO ECG 05/01/2020 11:04:19 SINUS TACHYCARDIA NOW PRESENT Electronically Signed On 03-18-2023 20:23:36 PENCIL MAKER by Jennie Mckeon M.D.
--- NOTE | 2023-03-18 17:30 | ED.URI ---
HPI - URI/Sore Throat General Chief Complaint: Upper Respiratory Infection <KAMARI Hermosillo Last Filed: 03/18/23 17:34> Stated Complaint: COUGH, BRUISING TO L SIDE NOT ON THINNERS <KAMARI Hermosillo Last Filed: 03/18/23 17:34> Time Seen by Provider: 03/18/23 21:34 <KAMARI Hermosillo Last Filed: 03/18/23 17:34> Source: patient <KAMARI Hermosillo Last Filed: 03/18/23 17:34> Mode of arrival: ambulatory <KAMARI Hermosillo Last Filed: 03/18/23 17:34> Limitations: no limitations <KAMARI Hermosillo Last Filed: 03/18/23 17:34> History of Present Illness HPI Narrative: Patient is a 62-year-old male who presents the ED with cough, wheezing to left-sided abdomen. Patient reports he has had a prolonged cough for the last 3 weeks. He was diagnosed with COVID-19 on 03/11. He has been on antibiotic and paxlovid without significant improvement. He states he began having a more severe cough and pain in his left-sided abdomen/ribs on Friday. He does note forceful coughing. He then noticed a large area of bruising to last night, which has since expanded today. He denies pain at rest, on the reporting pain in his abdomen with coughing. He is not on any blood thinners. He does admit to feeling somewhat short of breath at times, worse with exertion. Denies chest pain at rest. Denies fevers. <KAMARI Hermosillo Last Filed: 03/18/23 17:34> Patient is a 62-year-old male who presents the ED with cough, wheezing to left-sided abdomen. Patient reports he has had a prolonged cough for the last 3 weeks. He was diagnosed with COVID-19 on 03/11. He has been on antibiotic and paxlovid. He states he began having a more severe cough and pain in his left-sided abdomen/ribs on Friday. He does note forceful coughing. He then noticed a large area of bruising to last night, which has since expanded today. He denies pain at rest, on the reporting pain in his abdomen with coughing. He is not on any blood thinners. Denies dyspnea, chest pain, fevers. <Luanne Hickman MD - Last Filed: 03/25/23 17:03> Related Data Home Medications: Home Medications Medication Instructions Recorded Confirmed amlodipine 10 mg tablet 10 mg DAILY 04/27/19 03/23/23 aspirin 81 mg tablet,delayed 81 mg DAILY 04/27/19 03/23/23 release atenolol 25 mg tablet 25 mg DAILY 04/27/19 03/23/23 irbesartan 300 mg tablet 300 mg DAILY 04/27/19 03/23/23 bphijvzbkoki-iax-plutn acid-vit 1 tablet PO DAILY 05/01/20 03/23/23 K-lycop 400 mcg-20 mcg-370 mcg tablet (Men 50 Plus Advanced One Daily) omega 8-tox-ccc-fish oil 60 mg-90 1 cap PO DAILY 05/08/22 03/23/23 mg-500 mg capsule (Fish Oil) rosuvastatin 10 mg tablet 10 mg PO DAILY 05/08/22 03/23/23 glimepiride 4 mg tablet 4 mg PO BID 05/11/22 03/23/23 <Ami Villagran PA-C - Last Filed: 03/18/23 17:34> Allergies/Adverse Reactions: Allergies Allergy/AdvReac Type Severity Reaction Status Date / Time No Known Allergies Allergy Verified 03/21/23 16:47 <Ami Villagran PA-C - Last Filed: 03/18/23 17:34> Review of Systems Review of Systems: CONSTITUTIONAL: Denies fever, chills, or sweats. RESPIRATORY: See HPI. GASTROINTESTINAL: See HPI. GENITOURINARY: Denies dysuria or hematuria. SKIN: See HPI. MUSCULOSKELETAL: See HPI. <Ami Villagran PA-C - Last Filed: 03/18/23 17:34> All systems reviewed & are unremarkable except as noted in HPI and below <Ami Villagran PA-C - Last Filed: 03/18/23 17:34> PMFSH Past Medical History Medical History: Medical History Diabetes Hyperlipidemia Hypertension Obstructive sleep apnea Osteoarthritis Prostate cancer <Ami Villagran PA-C - Last Filed: 03/18/23 17:34> Surgical History Surgical History: Surgical History (Reviewed 03/21/23 @ 16:50 by Carolyn
[2023-03-18 17:58] VITALS: BP 150/93; PULSE 125; RESP 20; O2SAT 97
[2023-03-18 18:08] LABS: Basophils Percent Auto 0.2 % (0.2-1.2); Eosinophils Percent Auto 0.2 % (0-4.4); Hematocrit 44.2 % (42.0-52.0); Hemoglobin 14.6 g/dL (14.0-18.0); Immature Granulocyte Absolute 0.03 K/mm3 (0.00-0.031); Immature Granulocyte Percent A 0.5 % (0-0.5); Lymphocytes Absolute Auto 0.47 K/mm3 (0.9-3.2); Lymphocytes Percent Auto 8.1 % (18.3-44.2); Mean Corpuscular Hemoglobin 29.2 pg (26-34); Mean Corpuscular Volume 88.4 fl (80-100); Mean Platelet Volume 9.1 fl (7.4-10.4); Monocytes Absolute Auto 0.4 K/mm3 (0.1-0.6); Monocytes Percent Auto 6.2 % (2.6-8.5); Neutrophils Absolute Auto 4.9 K/mm3 (1.3-6.7); Neutrophils Percent Auto 84.8 % (45.5-73.1); Platelet Count Result 210 k/mm3 (150-375); Red Cell Distribution Width 13.8 % (11.5-14.5); White Blood Count 5.8 K/mm3 (4.5-10.0)
[2023-03-18 18:17] LABS: Alanine Aminotransferase 32 U/L (6-50); Albumin Level 4.3 g/dL (3.5-5.1); Alkaline Phosphatase 84 U/L (38-126); Anion Gap 7 mmol/L (8-16); Aspartate Amino Transferase 31 U/L (17-59); Bilirubin,Total 0.7 mg/dL (0.2-1.3); Blood Urea Nitrogen 20 mg/dL (9-20); Calcium 9.5 mg/dL (8.4-10.2); Carbon Dioxide 26 mmol/L (22-30); Chloride 102 mmol/L (98-107); Estimated CRCL calculation 132 ml/min; Estimated Glomerular Filt Rate > 60; Glucose 291 mg/dL (65-110); Potassium 4.4 mmol/L (3.4-5.0); Sodium 135 mmol/L (137-145)
[2023-03-18 18:20] LABS: INR 0.9; Prothrombin Time 12.5 Seconds (11.1-14.7)
[2023-03-18 18:21] LABS: Partial Thromboplastin Time 25.2 SECONDS (22.3-36.8)
[2023-03-18 18:29] LABS: Troponin I < 0.012 ng/mL (0.000-0.034)
[2023-03-18 20:55] VITALS: O2SAT 98
[2023-03-18 22:17] VITALS: BP 152/84; PULSE 122; RESP 20; O2SAT 98
[2023-03-18] MEDS: oxyCODONE/ACETAMINOPHEN (*CRX) 5-325 MG TABLET 1 TABLET PO (23:27)
[2023-03-19 15:53] LABS: Estimated CRCL calculation 132 ml/min; Estimated Glomerular Filt Rate > 60
== END 2023-03-18 23:34 | disposition home or self-care (01) ==
PROVIDERS: Physician Assistant; Emergency Provider Emergency Medicine; PCP Physician Assistant
DX: S22.32XA Fracture of one rib, left side, initial encounter for closed fracture (principal); E11.9 Type 2 diabetes mellitus without complications; E78.5 Hyperlipidemia, unspecified; I10 Essential (primary) hypertension; G47.30 Sleep apnea, unspecified; M19.90 Unspecified osteoarthritis, unspecified site; X50.0XXA Overexertion from strenuous movement or load, initial encounter
CPT/HCPCS: 36415; 71275; 74177; 80053; 82565; 84484; 85025; 85610; 85730; 93005; 99284; A9270; Q9967

== ENCOUNTER 2025-04-13 11:44 | Emergency (ER) | payer MEDICARE, SELFPAY ==
--- NOTE | ~2025-04-13 | CT_ITS ---
EXAMINATION: CT abdomen pelvis wo con DATE: 04/13/2025 13:25 INDICATION: Hematuria TECHNIQUE: Computed tomography (CT) of the abdomen and pelvis was performed without intravenous contrast. Automated exposure control and iterative reconstruction technique were employed. The dose-length product was 1634.64 mGy-cm. COMPARISON: CT dated 03/18/2023 FINDINGS: Mild discoid atelectasis in the left lower lobe and lingula. Heart size is normal. No pericardial or pleural effusion. Liver, gallbladder, spleen, pancreas and bilateral adrenal glands are normal. Multiple parapelvic cysts at both kidneys. No urolithiasis or hydronephrosis. Postoperative change of prior prostatectomy. Bladder is completely decompressed which limits evaluation. There are couple diverticula at the distal descending colon without adjacent comparison to suggest diverticular colitis. Bowels are otherwise unremarkable with normal appendix. No free intraperitoneal gas or fluid. No pathologically enlarged abdominal or pelvic lymphadenopathy. Mild lumbar and moderate lower thoracic spondylosis. IMPRESSION: 1. Multiple bilateral peripelvic cysts. No urolithiasis. 2. Status post prostatectomy. Bladder is completely decompressed which limits evaluation. Reviewed, dictated and finalized at location A. NT ENGAGEMENT MANAGER IMPRESSION: 1. Multiple bilateral peripelvic cysts. No urolithiasis. 2. Status post prostatectomy. Bladder is completely decompressed which limits e valuation.
--- OUTSIDE RECORDS SUMMARY | 2025-04-13 11:53 | XMS_ITS | Clinical Summary ---
Author Organization [facility] [address] Address [address] [place] [address] Care Team Providers Care Residential Real Estate Agent Name Role Phone Travis Covington MD Primary Care Provider [phone] Social History Tobacco Use Types Packs/Day Years Used Date Smoking Tobacco: Never Assessed Personal Safety Answer Date Recorded Getting School Help Needed Not on file 06/28 Sex and Gender Information Value Date Recorded Sex Assigned at Not on file Legal Sex Male 6:29 AM CDT Gender Identity Not on file Sexual Orientation Not on file Plan of Treatment Not on file Insurance [facility] Care Teams Residential Real Estate Agent Relationship Specialty Start Date End Date Travis Covington MD [address] [place] [address] PCP - General Family Medicine 07/24/18
[2025-04-13 12:03] VITALS: BP 131/86; PULSE 102; RESP 20; TEMP 36.7; O2SAT 97
--- NOTE | 2025-04-13 13:05 | ED_ITS ---
HPI - Male Genitourinary General Chief complaint: Urogenital-Male <KAMARI Hermosillo Last Filed: 04/13/25 13:11> Stated complaint: hematuria <KAMARI Hermosillo Last Filed: 04/13/25 13:11> Time Seen by Provider: 04/13/25 13:05 <KAMARI Hermosillo Last Filed: 04/13/25 13:11> Focused HPI: Patient is a 64 y/o male who presents to the ED with c/o hematuria. reported having light blood in urine 3 days ago after waking up. Did not notice hematuria throughout the rest of the day. Today, he states he urinated normally this morning and then his second urination consisted of blood only. Denies significant dysuria or pain with urination. Reports chills for the past 1 week, increased fatigue. Denies abdominal pain, back/flank pain. Denies fevers. Is not on any anticoagulation. Hx of prostate CA s/p prostatectomy. Follows with Dr. Msoer. GENERAL: Well-appearing, well-nourished, and in no acute distress. HEAD: Normocephalic, atraumatic. CHEST: Clear to auscultation. ?No respiratory distress. HEART: Regular rate and rhythm.? NEURO: ?Alert and oriented x3. Patient screened in triage and initial orders placed.? ?Additional care and disposition to be based upon?diagnostic testing and treatment. <KAMARI Hermosillo Last Filed: 04/13/25 13:11> Source: patient <KAMARI Hermosillo Last Filed: 04/13/25 13:11> Mode of arrival: ambulatory <KAMARI Hermosillo Last Filed: 04/13/25 13:11> Limitations: no limitations <KAMARI Hermosillo Last Filed: 04/13/25 13:11> History of Present Illness HPI Narrative: 64-year-old male presented to the emergency department for evaluation for episode of hematuria. Patient states he has noticed some mild hematuria over the last few days then this morning he had a clear urine on his initial urination but his 2nd urination had an episode of gross hematuria. Patient denies any pain with this. Patient reports subsequent urination was clear and reports passing relatively clear urine here in the emergency department. Patient does have a prior history of prostate cancer had a prostatectomy approximately 5 years ago and had radiation therapy 3-4 years ago. Patient does still follow-up with [facility]. Patient states over the last few weeks he has had some intermittent issues with waking up in the morning with increased urinary incontinence. Patient denies any sensation of urinary retention. Patient also had some increased chills at night as well. Patient is not on a blood thinner. <Dionisio Trevizo MD - Last Filed: 04/13/25 19:11> Related Data Home medications: Home Medications ?Medication ?Instructions ?Recorded ?Confirmed ?Last Taken ?Type aspirin 81 mg tablet,delayed 81 mg DAILY 04/27/1906/08 1 Day Ago History release ~05/08/20 Held on 05/10/20. Instructions: Resume on 05/17/20. [id number] acid-vit 1 tablet PO DAILY 04/1403/15/25 1 Week Ago History K-lycop 400 mcg-20 mcg-370 mcg ~05/02 tablet (Men 50 Plus Advanced One Daily) omega 9-xdk-cfy-fish oil 60 mg-90 1 cap PO DAILY 05/0803/15/25 Unknown History mg-500 mg capsule (Fish Oil) <Ami Villagran PA-C - Last Filed: 04/13/25 13:11> Allergies/Adverse reactions: Allergies Allergy/AdvReac Type Severity Reaction Status Date / Time No Known Allergies Allergy Verified 03/15/25 11:05 <Ami Villagran PA-C - Last Filed: 04/13/25 13:11> Review of Systems 2 Review of Systems: All systems reviewed & are unremarkable except as noted in HPI and below <Dionisio Trevizo MD - Last Filed: 04/13/25 19:11> FORMERLY [facility] Past Medical History Medical History: Medical History (Updated 04/13/25 @ 15:09 by Dionisio Trevizo MD) Anxiety and depression History of prostate cancer Prostate cancer LLQ pain Type 2 diabetes mellitus with diabetic neuropathy, with long-term current use of insulin Osteoarthritis Obstructive sleep apnea Hyperlipidemia Hypertension <Ami Villagran PA-C - Last Filed: 04/13/25 13:11> Surgical History Surgical History: Surgical History History of vasectomy 07/1984 H/O removal of cyst ganglion cyst R wrist 2008 History of prostate surgery robotic assisted nerve-sparing prostatectomy 05/09/20 <KAMARI Hermosillo Last Filed: 04/13/25 13:11> Family History Family History: Family History Mother Family history of thyroid disease Family history of dementia Father Patient's father is Family history of malignant neoplasm Other Hypertension <KAMARI Hermosillo Last Filed: 04/13/25 13:11> Social History Social History: Social History (Updated 03/15/25 @ 11:08 by Cristal Gonzalez MA) Smoking status: Never smoker Second hand tobacco smoke exposure: No Alcohol intake: never Substance use: never Substance use type: does not use Lack of Transportation: No Lack of Food: Never True Current Housing: I Have Housing Concerned About Future Housing: No Difficulty Paying Gas/Electric Bills: No Difficulty Paying for Meds: No Education: High School Diploma/GED Difficulty w/ Childcare or Family Care: No Living arrangements: with family Occupation/Education: retired Gender identity (if verbalized by the patient): Male Sexual Orientation (if Verbalized by the Patient): Straight or Heterosexual Spiritual care concerns: No <KAMARI Hermosillo Last Filed: 04/13/25 13:11> Exam 2 Narrative: APPEARANCE: Well appearing, no pain, no distress, well-nourished. HEAD: normocephalic, atraumatic. EYES: PERRLA/EOMI, conjunctivae clear. NOSE: Normal no drainage EARS:TMS clear with good light reflex. THROAT: Pharynx clear, no exudate. NECK: Supple. No adenopathy, no masses. RESPIRATORY: Airway patent, respirations nonlabored. Clear to auscultation bilaterally, no rales, rhonchi, wheezing. CARDIOVASCULAR: Regular rate and rhythm without murmurs rubs or gallops. ABDOMINAL: Soft, nontender, nondistended, normal bowel sounds MUSCULOSKELETAL: Moves all extremities. Strength/ROM intact, No edema, No calf tenderness. NEURO: Alert. Cranial nerves II through XII intact. Good gait. Good coordination SKIN: Warm, dry. Normal Color PSYCHIATRIC: Normal affect/mood. <Dionisio Trevizo MD - Last Filed: 04/13/25 19:11> Course Vital Signs Vital signs: Vital Signs Temperature 98.1 F 04/13/25 12:03 Pulse Rate 102 H 04/13/25 12:03 Respiratory Rate 20 04/13/25 12:03 Blood Pressure 131/86 04/13/25 12:03 Pulse Oximetry 97 04/13/25 12:03 Temperature 98.1 F 04/13/25 12:03 Pulse Rate 84 04/13/25 15:22 Respiratory Rate 20 04/13/25 15:22 Blood Pressure 110/76 04/13/25 15:22 Pulse Oximetry 98 04/13/25 15:22 <Ami Villagran PA-C - Last Filed: 04/13/25 13:11> Vital Signs Temperature 98.1 F 04/13/25 12:03 Pulse Rate 102 H 04/13/25 12:03 Respiratory Rate 20 04/13/25 12:03 Blood Pressure 131/86 04/13/25 12:03 Pulse Oximetry 97 04/13/25 12:03 Temperature 98.1 F 04/13/25 12:03 Pulse Rate 84 04/13/25 15:22 Respiratory Rate 20 04/13/25 15:22 Blood Pressure 110/76 04/13/25 15:22 Pulse Oximetry 98 04/13/25 15:22 <Dionisio Trevizo MD - Last Filed: 04/13/25 19:11> MDM MDM Narrative Medical decision making narrative: MSE by ANKITA in triage <Ami Villagran PA-C - Last Filed: 04/13/25 13:11> MSE by ANKITA in triage 64-year-old male presents emergency department for evaluation for an episode of gross hematuria this morning. Patient's subsequent urinations had no gross hematuria. Patient felt his urine was clear on his most recent urination. Patient is currently afebrile with no leukocytosis and a stable hemoglobin of 16.9 and normal platelets of 178. Patient's INR is 0.9. Patient has normal kidney function. UA was positive for blood but negative for infection. CT scan shows no acute intra-abdominal pathology and was negative for ureteral calculi. Bladder is completely decompressed. On re-evaluation patient denies any complaints and is well-appearing. Case was discussed with Dr. Milan he was comfortable plan for discharge and close follow-up as outpatient. He does anticipate the patient well and of having outpatient cystoscopy. Since the patient is not retaining urine has no evidence of infection they are comfortable with the patient having outpatient follow-up. Patient was also comfortable with this plan. All questions concerns were addressed. Patient was well-appearing at time of discharge. <Dionisio Trevizo MD - Last Filed: 04/13/25 19:11> Differential Diagnosis Differential Diagnosis: Urinary retention, ureteral calculi, bladder rupture, bladder mass <Dionisio Trevizo MD - Last Filed: 04/13/25 19:11> Lab Data MDM Lab Attestation statement: I personally reviewed the patient's lab results. <Dionisio Trevizo MD - Last Filed: 04/13/25 19:11> Result diagrams: 04/13/25 13:39 04/13/25 13:39 <Ami Villagran PA-C - Last Filed: 04/13/25 13:11> Labs: Lab Results 04/13/25 04/13/25 Range/Units 13:14 13:39 WBC 6.5 (4.5-10.0) K/mm3 RBC 5.72 (4.6-6.20) M/mm3 Hgb 16.9 (14.0-18.0) g/dL Hct 49.8 (42.0-52.0) % MCV 87.1 (80-100) fl MCH 29.5 (26-34) pg MCHC 33.9 (32-36) g/dl RDW 13.0 (11.5-14.5) % Plt Count 178 (150-375) k/mm3 MPV 8.8 (7.4-10.4) fl Immature Gran % (Auto) 0.6 H (0-0.5) % Neut % (Auto) 77.0 H (45.5-73.1) % Lymph % (Auto) 12.2 L (18.3-44.2) % [place] % (Auto) 8.8 H (2.6-8.5) % Eos % (Auto) 0.9 (0-4.4) % Baso % (Auto) 0.5 (0.2-1.2) % Lymph # (Auto) 0.79 L (0.9-3.2) K/mm3 [place] # (Auto) 0.6 (0.1-0.6) K/mm3 Eos # (Auto) 0.1 (0-0.3) K/mm3 Baso # (Auto) 0.0 (0.0-0.1) K/mm3 Abs Immat Gran (auto) 0.04 H (0.00-0.031) K/mm3 Absolute Neuts (auto) 5.0 (1.3-6.7) K/mm3 Absolute Nucleated RBC 0.000 (0.0-0.012) K/mm3 Nucleated RBC % 0.0 (0.0-0.2) % PT 12.2 (11.1-14.7) Seconds INR 0.9 APTT 27.1 (22.3-36.8) Seconds Sodium 137 (137-145) mmol/L Potassium 4.4 (3.4-5.0) mmol/L Chloride 104 (98-107) mmol/L Carbon Dioxide 28 (22-30) mmol/L Anion Gap 5 (4-12) mmol/L BUN 17 (9-20) mg/dL Creatinine 0.83 (0.7-1.3) mg/dL Estim Creat Clear Calc 106 ml/min Estimated GFR > 60 (59 - ) Glucose 148 H (65-110) mg/dL Calcium 9.9 (8.4-10.2) mg/dL Total Bilirubin 0.8 (0.2-1.3) mg/dL AST 38 (17-59) U/L ALT 35 (6-50) U/L Alkaline Phosphatase 82 (38-126) U/L Total Protein 7.2 (6.3-8.2) g/dL Albumin 4.2 (3.5-5.1) g/dL Urine Color Yellow (Yellow) Urine Appearance Clear (Clear) Urine pH 5.5 (5.0-9.0) Ur Specific [place] 1.041 H (1.001-1.035) Urine Protein Negative (Negative) mg/dL Urine Glucose (UA) 3+ H (Negative) mg/dL Urine Ketones Negative (Negative) mg/dL Ur Blood (Man) 3+ H (Negative) Urine Nitrate Negative (Negative) Urine Bilirubin Negative (Negative) Urine Urobilinogen 0.2 (<2.0) mg/dL Leukocyte Esterase Rfl Negative (Negative) RICA/UL Urine RBC 51-100 H (0-2) /hpf Urine WBC 0-5 (0-3) /hpf Ur Squamous Epith Cells None seen (Few) /hpf Urine Bacteria None seen /hpf Urine Casts 0-2 <Ami Villagran PA-C - Last Filed: 04/13/25 13:11> Lab Results 04/13/25 04/13/25 Range/Units 13:14 13:39 WBC 6.5 (4.5-10.0) K/mm3 RBC 5.72 (4.6-6.20) M/mm3 Hgb 16.9 (14.0-18.0) g/dL Hct 49.8 (42.0-52.0) % MCV 87.1 (80-100) fl MCH 29.5 (26-34) pg MCHC 33.9 (32-36) g/dl RDW 13.0 (11.5-14.5) % Plt Count 178 (150-375) k/mm3 MPV 8.8 (7.4-10.4) fl Immature Gran % (Auto) 0.6 H (0-0.5) % Neut % (Auto) 77.0 H (45.5-73.1) % Lymph % (Auto) 12.2 L (18.3-44.2) % [place] % (Auto) 8.8 H (2.6-8.5) % Eos % (Auto) 0.9 (0-4.4) % Baso % (Auto) 0.5 (0.2-1.2) % Lymph # (Auto) 0.79 L (0.9-3.2) K/mm3 [place] # (Auto) 0.6 (0.1-0.6) K/mm3 Eos # (Auto) 0.1 (0-0.3) K/mm3 Baso # (Auto) 0.0 (0.0-0.1) K/mm3 Abs Immat Gran (auto) 0.04 H (0.00-0.031) K/mm3 Absolute Neuts (auto) 5.0 (1.3-6.7) K/mm3 Absolute Nucleated RBC 0.000 (0.0-0.012) K/mm3 Nucleated RBC % 0.0 (0.0-0.2) % PT 12.2 (11.1-14.7) Seconds INR 0.9 APTT 27.1 (22.3-36.8) Seconds Sodium 137 (137-145) mmol/L Potassium 4.4 (3.4-5.0) mmol/L Chloride 104 (98-107) mmol/L Carbon Dioxide 28 (22-30) mmol/L Anion Gap 5 (4-12) mmol/L BUN 17 (9-20) mg/dL Creatinine 0.83 (0.7-1.3) mg/dL Estim Creat Clear Calc 106 ml/min Estimated GFR > 60 (59 - ) Glucose 148 H (65-110) mg/dL Calcium 9.9 (8.4-10.2) mg/dL Total Bilirubin 0.8 (0.2-1.3) mg/dL AST 38 (17-59) U/L ALT 35 (6-50) U/L Alkaline Phosphatase 82 (38-126) U/L Total Protein 7.2 (6.3-8.2) g/dL Albumin 4.2 (3.5-5.1) g/dL Urine Color Yellow (Yellow) Urine Appearance Clear (Clear) Urine pH 5.5 (5.0-9.0) Ur Specific [place] 1.041 H (1.001-1.035) Urine Protein Negative (Negative) mg/dL Urine Glucose (UA) 3+ H (Negative) mg/dL Urine Ketones Negative (Negative) mg/dL Ur Blood (Man) 3+ H (Negative) Urine Nitrate Negative (Negative) Urine Bilirubin Negative (Negative) Urine Urobilinogen 0.2 (<2.0) mg/dL Leukocyte Esterase Rfl Negative (Negative) RICA/UL Urine RBC 51-100 H (0-2) /hpf Urine WBC 0-5 (0-3) /hpf Ur Squamous Epith Cells None seen (Few) /hpf Urine Bacteria None seen /hpf Urine Casts 0-2 <Dionisio Trevizo MD - Last Filed: 04/13/25 19:11> Imaging Data Radiologist's impression: ITS Impressions Abdomen/Pelvis CT 04/13/25 13:33 IMPRESSION: 1. Multiple bilateral peripelvic cysts. No urolithiasis. 2. Status post prostatectomy. Bladder is completely decompressed which limits evaluation. <Ami Villagran PA-C - Last Filed: 04/13/25 13:11> ITS Impressions Abdomen/Pelvis CT 04/13/25 13:33 IMPRESSION: 1. Multiple bilateral peripelvic cysts. No urolithiasis. 2. Status post prostatectomy. Bladder is completely decompressed which limits evaluation. <Dionisio Trevizo MD - Last Filed: 04/13/25 19:11> Discharge Plan Discharge Clinical Impression: Hematuria <Ami Villagran PA-C - Last Filed: 04/13/25 13:11> Patient Disposition: Home <Ami Villagran PA-C - Last Filed: 04/13/25 13:11> Condition: Stable <Ami Villagran PA-C - Last Filed: 04/13/25 13:11> Instructions: Antibiotic Form, Hematuria (ED) <Ami Villagran PA-C - Last Filed: 04/13/25 13:11> Additional Instructions: Continue to have close follow-up with Urology as outpatient. Urology does anticipate scheduling you for outpatient cystoscopy. If you have any worsening symptoms including fever, uncontrolled pain or inability to urinate please call or return to the emergency department. <Ami Villagran PA-C - Last Filed: 04/13/25 13:11> Patient Language: Armenian <Ami Villagran PA-C - Last Filed: 04/13/25 13:11> Prescriptions: No Action aspirin 81 mg tablet,delayed release (DR/EC) 81 mg DAILY Gvoke HypoPen 2-Pack 0.5 mg/0.1 mL auto-injector 1 mg subcut ONCE Qty: 0.2 3RF Rx Instructions: as a single dose; may repeat once after 15 minutes if no response citalopram 20 mg tablet 20 mg PO DAILY Qty: 90 1RF omega 0-zhf-lru-fish oil [Fish Oil] 60-90-500 mg capsule 1 cap PO DAILY Men 50 Plus Advanced One Daily 400-20-370 mcg Tablet 1 tablet PO DAILY (DME) Contour Test Strips Strip See Rx Instructions .Route Qty: 100 6RF Rx Instructions: once daily (DME) Contour Next Test Strips Strip See Rx Instructions .Route Qty: 100 3RF Rx Instructions: 1 test strip daily rosuvastatin 10 mg tablet See Rx Instructions .ROUTE .COMPLEX Qty: 90 1RF Dose Instruction: TAKE 1 TABLET BY MOUTH EVERY DAY Rx Instructions: TAKE 1 TABLET BY MOUTH EVERY DAY Jardiance 25 mg tablet See Rx Instructions .ROUTE .COMPLEX Qty: 90 2RF Dose Instruction: TAKE 1 TABLET BY MOUTH EVERY DAY Rx Instructions: TAKE 1 TABLET BY MOUTH EVERY DAY irbesartan 300 mg tablet 300 mg PO DAILY Qty: 90 0RF Ozempic 1 mg/dose (4 mg/3 mL) pen injector 1 mg subcut WEEKLY 30 Days Qty: 3.75 5RF (DME) pen needle, diabetic 32 gauge x 1/4 needle See Rx Instructions .Route Qty: 100 3RF Rx Instructions: SC daily metformin 1,000 mg tablet See Rx Instructions .ROUTE .COMPLEX Qty: 180 1RF Dose Instruction: TAKE 2 TABLETS EVERY DAY WITH FOOD Rx Instructions: TAKE 2 TABLETS EVERY DAY WITH FOOD amlodipine 10 mg tablet 10 mg PO DAILY Qty: 90 1RF (DME) Contour Next Test Strips Strip See Rx Instructions .Route Qty: 100 3RF Rx Instructions: Test blood sugar once a day glimepiride 4 mg tablet 4 mg PO BID 90 Days Qty: 180 1RF atenolol 25 mg tablet See Rx Instructions .ROUTE .COMPLEX Qty: 90 1RF Dose Instruction: TAKE 1 TABLET BY MOUTH EVERY DAY Rx Instructions: TAKE 1 TABLET BY MOUTH EVERY DAY insulin glargine-yfgn [Semglee(insulin glarg-yfgn)Pen] 100 unit/mL (3 mL) insulin pen 30 unit subcut DAILY Qty: 15 3RF <Ami Villagran PA-C - Last Filed: 04/13/25 13:11> Follow-up/Referrals: Travis Covington MD [Primary Care Provider, Family Practice] <Ami Villagran PA-C - Last Filed: 04/13/25 13:11>
[2025-04-13 13:25] LABS: Add Urine Microscopic? YES; Appearance Urine Clear (Clear); Glucose Urine UA 3+ mg/dL (Negative); Leukocyte Esterase Ur Negative LEU/UL (Negative); Nitrate Urine Negative (Negative); Non Pathogenic Casts 0-2; Specific Grav Ur 1.041 (1.001-1.035)
[2025-04-13 13:50] LABS: Hematocrit 49.8 % (42.0-52.0); Hemoglobin 16.9 g/dL (14.0-18.0); Immature Granulocyte Percent A 0.6 % (0-0.5); Lymphocytes Absolute Auto 0.79 K/mm3 (0.9-3.2); Mean Corpuscular HGB Conc 33.9 g/dl (32-36); Mean Corpuscular Hemoglobin 29.5 pg (26-34); Mean Corpuscular Volume 87.1 fl (80-100); Nucleated Red Blood Cells Absolute Auto 0.000 K/mm3 (0.0-0.012); Nucleated Red Blood Cells Perc 0.0 % (0.0-0.2); Platelet Count Result 178 k/mm3 (150-375); Red Blood Count 5.72 M/mm3 (4.6-6.20); White Blood Count 6.5 K/mm3 (4.5-10.0)
[2025-04-13 14:03] LABS: INR 0.9; Prothrombin Time 12.2 Seconds (11.1-14.7)
[2025-04-13 14:04] LABS: Alanine Aminotransferase 35 U/L (6-50); Albumin Level 4.2 g/dL (3.5-5.1); Alkaline Phosphatase 82 U/L (38-126); Anion Gap 5 mmol/L (4-12); Aspartate Amino Transferase 38 U/L (17-59); Bilirubin,Total 0.8 mg/dL (0.2-1.3); Blood Urea Nitrogen 17 mg/dL (9-20); Calcium 9.9 mg/dL (8.4-10.2); Carbon Dioxide 28 mmol/L (22-30); Chloride 104 mmol/L (98-107); Estimated CRCL calculation 106 ml/min; Estimated Glomerular Filt Rate > 60; Glucose 148 mg/dL (65-110); Partial Thromboplastin Time 27.1 Seconds (22.3-36.8); Potassium 4.4 mmol/L (3.4-5.0); Sodium 137 mmol/L (137-145); Total Protein 7.2 g/dL (6.3-8.2)
[2025-04-13 15:22] VITALS: BP 110/76; PULSE 84; RESP 20; O2SAT 98
== END 2025-04-13 15:25 | disposition home or self-care (01) ==
PROVIDERS: Student in an Organized Health Care Education/Training Program; Emergency Provider Emergency Medicine; PCP Family Medicine
DX: R31.9 Hematuria, unspecified (principal); Z85.46 Personal history of malignant neoplasm of prostate; Z90.79 Acquired absence of other genital organ(s); E11.40 Type 2 diabetes mellitus with diabetic neuropathy, unspecified; Z79.4 Long term (current) use of insulin; G47.33 Obstructive sleep apnea (adult) (pediatric); E78.5 Hyperlipidemia, unspecified; I10 Essential (primary) hypertension
CPT/HCPCS: 36415; 74176; 80053; 81001; 85025; 85610; 85730; 99284